=== PATIENT | female | born 1985 | race Caucasian/White ===

== ENCOUNTER → 2020-01-03 | Outpatient (CLI) | payer BC ==
[2020-01-03 11:07] LABS: BASO # 0.1 (0.0-0.2); BASO % 0.6 % (0.0-2.0); EOS # 0.2 (0.0-0.7); EOS % 2.2 % (0-4.0); GRAN # 4.4 (1.4-6.5); GRAN % 51.8 % (42.2-75.2); HEMATOCRIT 39.4 % (37.0-47.0); HEMOGLOBIN 12.8 g/dl (12.5-16.0); LYMPH # 3.3 (1.2-3.4); LYMPH % 39.1 % (20.0-51.0); MEAN CELL VOLUME 84 fl (80.0-100.0); MEAN CORPUSCULAR HEMOGLOBIN 27 pg (27.0-31.0); MEAN CORPUSCULAR HGB CONC 33 g/dl (33.0-37.0); MEAN PLATELET VOLUME 8.7 fl (7.4-10.4); MONO # 0.5 (0.1-0.6); MONO % 6.2 % (1.7-9.3); PLATELET COUNT 304 K/mm3 (130-400); RED BLOOD COUNT 4.71 M/mm3 (4.10-5.30); REDCELL DISTRIBUTION WIDTH-CV 12.4 % (11.5-14.5)
[2020-01-03 11:22] LABS: ALANINE AMINOTRANSFERASE 19 U/L (4-34); ALBUMIN 4.1 gm/dL (3.5-5.0); ALKALINE PHOSPHATASE 68 U/L (50-136); ANION GAP 5 mmol/L (7-16); AST,SGOT 25 U/L (15-37); BILIRUBIN,TOTAL 0.5 mg/dL (0.0-1.0); BLOOD UREA NITROGEN 15 mg/dL (7-17); CARBON DIOXIDE 28 mmol/L (22-30); CHLORIDE 102 mmol/L (98-107); CREATININE, serum 0.57 (0.52-1.25); GLUCOSE 99 mg/dL (74-106); POTASSIUM 3.9 mmol/L (3.4-5.0); SODIUM 135 mmol/L (137-145); TOTAL PROTEIN 7.7 gm/dL (6.4-8.2)
[2020-01-03 12:03] LABS: THYROID STIMULATING HORMONE < 0.015 uIU/mL (0.465-4.680)
== END ==
LOC: COL.LAB 10:37
DX: E05.90 Thyrotoxicosis, unspecified without thyrotoxic crisis or storm (principal)

== ENCOUNTER → 2020-01-18 | Outpatient (CLI) | payer BC ==
[2020-01-19 05:04] LABS: T3 FREE (TRI-IODOTHYRONINE) 5.5 pg/mL (())
== END ==
LOC: COL.LAB 09:52
DX: O99.281 Endocrine, nutritional and metabolic diseases complicating pregnancy, first trimester (principal); E05.90 Thyrotoxicosis, unspecified without thyrotoxic crisis or storm; Z3A.01 Less than 8 weeks gestation of pregnancy

== ENCOUNTER → 2020-01-28 | Outpatient (CLI) | payer BC ==
[2020-01-30 05:27] LABS: T3 FREE (TRI-IODOTHYRONINE) 6.4 pg/mL (())
== END ==
LOC: ZCOL.LAB 15:10
DX: Z34.91 Encounter for supervision of normal pregnancy, unspecified, first trimester (principal); E05.90 Thyrotoxicosis, unspecified without thyrotoxic crisis or storm; Z3A.01 Less than 8 weeks gestation of pregnancy

== ENCOUNTER → 2020-02-22 | Outpatient (CLI) | payer BC ==
[2020-02-22 10:17] LABS: HEMOGLOBIN 13.6 g/dl (12.5-16.0); MEAN CELL VOLUME 82 fl (80.0-100.0); MEAN CORPUSCULAR HEMOGLOBIN 27 pg (27.0-31.0); MEAN CORPUSCULAR HGB CONC 33 g/dl (33.0-37.0); MEAN PLATELET VOLUME 9.2 fl (7.4-10.4); PLATELET COUNT 290 K/mm3 (130-400); RED BLOOD COUNT 4.98 M/mm3 (4.10-5.30); REDCELL DISTRIBUTION WIDTH-CV 12.2 % (11.5-14.5)
[2020-02-22 10:29] LABS: ALANINE AMINOTRANSFERASE 15 U/L (4-34); ALKALINE PHOSPHATASE 53 U/L (50-136); ANION GAP 10 mmol/L (7-16); AST,SGOT 27 U/L (15-37); BILIRUBIN,TOTAL 0.6 mg/dL (0.0-1.0); BLOOD UREA NITROGEN 11 mg/dL (7-17); CALCIUM 9.3 mg/dL (8.4-10.2); CARBON DIOXIDE 23 mmol/L (22-30); CHLORIDE 101 mmol/L (98-107); CREATININE, serum 0.43 (0.52-1.25); GLUCOSE 126 mg/dL (74-106); POTASSIUM 3.6 mmol/L (3.4-5.0); SODIUM 134 mmol/L (137-145); TOTAL PROTEIN 7.7 gm/dL (6.4-8.2)
[2020-02-22 11:07] LABS: THYROID STIMULATING HORMONE < 0.015 uIU/mL (0.465-4.680)
== END ==
LOC: COL.LAB 09:46
DX: E05.90 Thyrotoxicosis, unspecified without thyrotoxic crisis or storm (principal); R63.5 Abnormal weight gain